=== PATIENT | female | born 1985 | race Caucasian/White ===

== ENCOUNTER 2024-04-12 06:32 | Day surgery (SDC) | payer OTHER, SELFPAY ==
[2024-04-06 09:41] VITALS: BMI 27.3
[2024-04-06 10:50] LABS: Urine Albumin Negative (Neg - Trace); Urine Bilirubin Negative (Negative); Urine Character Clear (Clear); Urine Color Yellow; Urine Glucose Negative (Negative); Urine Ketone Negative (Negative); Urine Leukocyte Trace (Negative); Urine Nitrite Negative (Negative); Urine Occult Blood Negative (Negative); Urine Urobilinogen Negative (Neg - 1+)
[2024-04-06 11:23] LABS: Urine Red Blood Cell 0-2 /HPF (0-2)
[2024-04-06 11:24] LABS: Urine Bacteria Few (Negative); Urine Squamous Cell 16-20 /LPF (Few)
[2024-04-12] VITALS (9 sets, daily range): BP systolic 108–129; BP diastolic 74–89; BMI 26.6; BMI 27.3
[2024-04-12] MEDS: NORMOSOL-R 1000 IV (09:48)
[2024-04-12] MEDS: DILAUDID 0.5 MG IV (12:30)
[2024-04-12] MEDS: Pyridium 200 MG PO (12:39)
[2024-04-12] MEDS: VALIUM 5 MG PO (12:39)
== END 2024-04-12 13:38 | disposition home or self-care (01) ==
LOC: SDS 06:32
PROVIDERS: ATTENDING PHYSICIAN Urology; FAMILY PHYSICIAN Nurse Practitioner Primary Care
DX: N30.10 Interstitial cystitis (chronic) without hematuria (principal)
CPT/HCPCS: 52260; 36415; 81003; 81015

== ENCOUNTER 2024-12-13 06:21 | Day surgery (SDC) | payer OTHER, SELFPAY ==
[2024-12-03 11:05] LABS: Urine Albumin Negative (Neg - Trace); Urine Bilirubin Negative (Negative); Urine Character Clear (Clear); Urine Color Straw; Urine Glucose Negative (Negative); Urine Ketone Negative (Negative); Urine Leukocyte Negative (Negative); Urine Nitrite Negative (Negative); Urine Occult Blood Negative (Negative); Urine Urobilinogen Negative (Neg - 1+)
[2024-12-03 13:19] VITALS: BMI 29.3
[2024-12-13] VITALS (7 sets, daily range): BP systolic 108–135; BP diastolic 69–93; BMI 29.3
[2024-12-13] MEDS: NORMOSOL-R/PLASMALYTE-A 1000 IV (07:49)
[2024-12-13 08:09] LABS: Urine Albumin Negative (Neg - Trace); Urine Bilirubin Negative (Negative); Urine Character Slightly Cloudy (Clear); Urine Color Yellow; Urine Glucose Negative (Negative); Urine Ketone Negative (Negative); Urine Leukocyte Negative (Negative); Urine Nitrite Negative (Negative); Urine Occult Blood 4+ (Negative); Urine Urobilinogen Negative (Neg - 1+)
[2024-12-13 08:21] LABS: Urine Bacteria Few (Negative); Urine Red Blood Cell 30-40 /HPF (0-2); Urine Squamous Cell >30 /LPF (Few); Urine White Cell 0-2 /HPF (0-5)
[2024-12-13] MEDS: Pyridium 200 MG PO (10:07)
== END 2024-12-13 11:00 | disposition home or self-care (01) ==
LOC: SDS 06:21
PROVIDERS: ATTENDING PHYSICIAN Urology; FAMILY PHYSICIAN Nurse Practitioner Primary Care
PROC: 0T7B8ZZ Dilation of Bladder, Via Natural or Artificial Opening Endoscopic (ICD-10-PCS; 2024-12-13)
DX: N30.10 Interstitial cystitis (chronic) without hematuria (principal)
CPT/HCPCS: 52260; 36415; 81003; 81015; 87077; 87086

== ENCOUNTER → 2024-12-14 12:00 | Outpatient (REF) | payer OTHER, SELFPAY | LOC: DHSLP 12:00 | PROVIDERS: ATTENDING PHYSICIAN Nurse Practitioner Primary Care | DX: G47.19 Other hypersomnia (principal); R06.83 Snoring | CPT/HCPCS: 95800 ==

== ENCOUNTER → 2025-08-16 19:33 | Outpatient (REF) | payer OTHER, SELFPAY | LOC: MRI 19:33 | PROVIDERS: ATTENDING PHYSICIAN Obstetrics & Gynecology; FAMILY PHYSICIAN Nurse Practitioner Primary Care | DX: N80.9 Endometriosis, unspecified (principal); R10.2 Pelvic and perineal pain | CPT/HCPCS: 72197; A9575 ==

== ENCOUNTER 2025-09-06 06:26 | Day surgery (SDC) | payer OTHER, SELFPAY ==
[2025-08-31 11:33] LABS: Hematocrit 37.2 % (37.0-47.0); Hemoglobin 12.7 g/dL (12.0-16.0); Mean Corp Hgb Conc. 34.1 g/dL (33.0-37.0); Mean Corpuscular Volume 86.7 fL (81.0-99.0); Platelet Count 161 10^3/uL (130-400); Red Cell Dist. Width 12.1 % (11.5-14.5)
[2025-08-31 11:54] LABS: Blood Urea Nitrogen 12 mg/dl (7-17); Calcium 9.1 mg/dl (8.4-10.2); Carbon Dioxide 27 mmol/L (22-30); Chloride 105 mmol/L (98-107); Glucose 89 mg/dl (70-99); Potassium 4.3 mmol/L (3.5-5.1); Sodium 138 mmol/L (135-145); eGFR > 60.00
[2025-08-31 14:19] VITALS: BMI 28.7
[2025-09-06] VITALS (7 sets, daily range): BP systolic 120–139; BP diastolic 75–99; BMI 28.7
[2025-09-06] MEDS: DILAUDID 0.5 MG IV (14:00)
--- NOTE | 2025-09-06 23:06 | W.IMMPOSTOP ---
Surgical Immed Post Op Note
-
Primary Surgeon: Leida Niño DO
Assisting Surgeon: none
Pre-op Diagnosis: Pelvic pain, dysmenorrhea, endometriosis
Post-op Diagnosis: same
Procedure Performed: insertion of Mirena IUD
Anesthesia Type: general ET (having procedure with Dr. Mata today)
Specimen / Cultures: none
Estimated Blood Loss: 0 ml
Complications: none
Operative Findings: Uterus sounded to 7 cm. Mirena IUD inserted and strings trimmed outside of cervix approx 3cm.
Lot # [id number]
Exp Aug 2027
Stable and handed care back over to Dr. Mata for completion of his portion of case.
== END 2025-09-06 15:23 | disposition home or self-care (01) ==
LOC: SDS 06:26
PROVIDERS: ATTENDING PHYSICIAN Obstetrics & Gynecology; FAMILY PHYSICIAN Nurse Practitioner Primary Care
DX: N80.329 Endometriosis of the posterior cul-de-sac, unspecified depth (principal); N80.3C3 Endometriosis of bilateral uterosacral ligament(s), unspecified depth; N80.353 Endometriosis of bilateral pelvic sidewall, unspecified depth; N30.10 Interstitial cystitis (chronic) without hematuria; N94.6 Dysmenorrhea, unspecified; G89.29 Other chronic pain; N94.10 Unspecified dyspareunia; N83.8 Other noninflammatory disorders of ovary, fallopian tube and broad ligament
CPT/HCPCS: 58662; 58558; 58300; 36415; 80048; 85027; 86850; 86900; 86901; 88304; 88305; 93005